=== PATIENT | female | born 1995 ===

== ENCOUNTER 2018-12-26 23:51 | Emergency (ER) | payer OTHER ==
[~2018-12-26] VITALS: Ht 149.9 cm; Wt 56.7 kg
[~2018-12-26 23:51] MED LIST: GILTUSS LIQUID237 M1 PO
[2018-12-27] MEDS ORDERED: PEPCID AC20 MG PO (08:38)
[2018-12-27] MEDS ORDERED: ZITHROMAX TRI-500 MG PO (08:38)
== END 2018-12-27 09:30 | disposition home or self-care (01) ==
LOC: ER 23:51
DX: J35.01 Chronic tonsillitis (principal); E86.0 Dehydration

== ENCOUNTER 2019-03-04 22:38 | Inpatient (IN) | payer OTHER ==
[~2019-03-04] VITALS: Ht 149.9 cm; Wt 61.7 kg
[~2019-03-04 22:38] MED LIST changes: +PEPCID AC20 MG PO; +ZITHROMAX TRI-500 MG PO
[2019-03-04] MEDS ORDERED: PRENATAL 19 TA1 EAC1 PO (23:16)
[2019-03-04] MEDS ORDERED: FOLIC ACID0.4 MG PO (23:16)
[2019-03-04] MEDS ORDERED: TYLENOL EXTRA500 MG PO (23:17)
== END 2019-03-07 14:59 | disposition home or self-care (01) | DRG 833 ==
LOC: OBS/DEL 22:38 → LDR 03-05 16:25 → OB/GYN 03-05 19:34
PROVIDERS: ADMIT Obstetrics & Gynecology Obstetrics
PROC: 4A1HXCZ Monitoring of Products of Conception, Cardiac Rate, External Approach (ICD-10-PCS; principal; 2019-03-05)
DX: O23.32 Infections of other parts of urinary tract in pregnancy, second trimester (principal); Z34.82 Encounter for supervision of other normal pregnancy, second trimester

== ENCOUNTER 2019-05-01 21:41 | Inpatient (IN) | payer OTHER ==
[~2019-05-01] VITALS: Ht 149.9 cm; Wt 64.4 kg
[~2019-05-01 21:41] MED LIST changes: +FOLIC ACID0.4 MG PO; +PRENATAL 19 TA1 EAC1 PO; +TYLENOL EXTRA500 MG PO
== END 2019-05-04 14:34 | DRG 833 ==
LOC: OBS/DEL 21:41 → LDR 05-02 21:50 → OBS/DEL 05-02 21:50 → OB/GYN 05-03 16:28
PROVIDERS: ADMIT Obstetrics & Gynecology Obstetrics
PROC: 4A0HXFZ Measurement of Products of Conception, Cardiac Rhythm, External Approach (ICD-10-PCS; principal; 2019-05-02)
DX: O60.03 Preterm labor without delivery, third trimester (principal); Z3A.29 29 weeks gestation of pregnancy

== ENCOUNTER 2019-07-07 15:02 | Inpatient (IN) | payer OTHER ==
[~2019-07-07] VITALS: Ht 149.9 cm; Wt 2.7 kg
[2019-07-07] MEDS ORDERED: PRENATAL TABLE1 EACH PO (15:15)
[2019-07-07] MEDS ORDERED: BENADRYL25 MG PO (15:25)
[2019-07-07] MEDS ORDERED: CALCIUM600 MG PO (15:25)
== END 2019-07-10 16:34 | disposition home or self-care (01) | DRG 785 ==
LOC: OB/GYN 15:02 → LDR 15:02 → OB/GYN 18:03
PROVIDERS: ADMIT Obstetrics & Gynecology Obstetrics
PROC: 0UL70ZZ Occlusion of Bilateral Fallopian Tubes, Open Approach (ICD-10-PCS; 2019-07-07)
PROC: 4A1HXCZ Monitoring of Products of Conception, Cardiac Rate, External Approach (ICD-10-PCS; 2019-07-07)
PROC: 10D00Z1 Extraction of Products of Conception, Low, Open Approach (ICD-10-PCS; principal; 2019-07-07 15:30)
DX: O82 Encounter for cesarean delivery without indication (principal); Z3A.38 38 weeks gestation of pregnancy; Z37.0 Single live birth; Z30.2 Encounter for sterilization

== ENCOUNTER 2019-07-11 22:29 | Inpatient (IN) | payer OTHER ==
[~2019-07-11] VITALS: Ht 162.6 cm; Wt 78.9 kg
[~2019-07-11 22:29] MED LIST changes: +BENADRYL25 MG PO; +CALCIUM600 MG PO; +PRENATAL TABLE1 EACH PO
--- NOTE | 2019-07-11 23:17 | NUR ---
PTE ALERTA Y ORIENTADA X 3 ESFERAS, REFIERE TOS DESDE ROSAMARIA Y FIEBRE LA CUAL LE COMENZO HOY. PTE REFIERE ILAN TENIDO CESAREA HACE 4 NIX, SE OBSERVA HERIDA LIMPIA Y MORTEZA DE ERITEMA. SE UBICA PTE EN AREA DE OBSERVACION.
--- NOTE | 2019-07-12 00:37 | NUR ---
PTE EVALUADA POR EL DR MIRACLE PATEL ORDENA EL [place].MS S ELENI ORIENTA SOBRE EL MISMO, LO CUAL REFIERE ENTENDER, REALIZA PRUEBAS DE LABORATORIO Y ADMINISTRA MEDICAMENTOS CIARAN ORDEN MEDICA Y SIGUIENDO MEDIDAS ASEPTICAS.ABG Y TERAPIAS RESPIRATORIAS NOTIFICADAS A PERSONAL DE TURNO.
--- NOTE | 2019-07-12 01:47 | NUR ---
PTE ES REEVALUADA POR BRIANNA REALIZA ORDENES SE ORIENTA SE ORIENTA A PTE SE ADMINISTRA MEDICAMENTO EL CUAL TOLERA,SE NOTIFICA A TERAPIA RESPIRATORIA SOBRE V/M 31% Y SE REALIZAN B/C Y SE ENVIAN A LABORATORIO.SE MANTINE PTE EN EHSAN 36 EN OBSERVACION POR CAMBIOS.
--- NOTE | 2019-07-12 07:22 | NUR ---
SE RECIBE PTE ALERTA Y ORIENADA X3 EN EHSAN CON BARANDAS ELEVADAS AL MOMENTO. PTE SE OBSERVA CON H/L EL CUAL SE ENCUENTRA PATENTE MORTEZA DE EDEMA Y ENROJECIMIENTO. PTE SE OBSERVA CON VT MASK AL 31%. PTE EN ESPERA DE CONSULTAS NOTIFICADAS. PTE SE CONTINUA MONITORIANDO POR CAMBIOS.
== END 2019-07-15 19:18 | disposition home or self-care (01) | DRG 202 ==
LOC: ER 22:29 → MEDJ 07-12 12:46 → OB/GYN 07-12 12:46 → SEC-K 07-12 12:46 → OB/GYN 07-12 13:42
PROVIDERS: ADMIT Internal Medicine
PROC: 3E0F7GC Introduction of Other Therapeutic Substance into Respiratory Tract, Via Natural or Artificial Opening (ICD-10-PCS; principal; 2019-07-12)
PROC: 4A033R1 Measurement of Arterial Saturation, Peripheral, Percutaneous Approach (ICD-10-PCS; 2019-07-12)
DX: J20.9 Acute bronchitis, unspecified (principal); J16.8 Pneumonia due to other specified infectious organisms

== ENCOUNTER 2021-04-27 23:33 | Emergency (ER) | payer OTHER ==
[~2021-04-27] VITALS: Ht 149.9 cm; Wt 53.5 kg
[2021-04-28] MEDS ORDERED: KETO10TA2 PO (05:58)
[2021-05-09] MEDS ORDERED: ACETAMINOPHEN500 M2 (13:38)
== END 2021-04-28 06:14 | disposition home or self-care (01) ==
LOC: ER 23:33
DX: M79.644 Pain in right finger(s) (principal)

== ENCOUNTER 2021-11-01 20:00 | Emergency (ER) | payer OTHER ==
[~2021-11-01] VITALS: Ht 149.9 cm; Wt 54.4 kg
[~2021-11-01 20:00] MED LIST changes: +ACETAMINOPHEN500 M2; +KETO10TA2 PO
[2021-11-01] MEDS ORDERED: KETO10TA2 PO (22:28)
[2021-11-01] MEDS ORDERED: ORPHENADRINE C100 MG PO (22:28)
[2021-11-01] MEDS ORDERED: PEPCID AC10 MG PO (22:44)
[2021-11-01] MEDS ORDERED: PRILOSEC10 MG PO ×2 (22:45→22:47)
== END 2021-11-01 22:56 | disposition home or self-care (01) ==
LOC: ER 20:00
DX: R07.89 Other chest pain (principal); M94.0 Chondrocostal junction syndrome [Tietze]